=== PATIENT | female | born 1975 ===

== ENCOUNTER 2018-04-24 03:45 | Inpatient (IN) | payer OTHER ==
[2018-04-24] MEDS ORDERED: Sodium Chloride 0.9% 1,000 ML IV ONE (04:00)
[2018-04-24] MEDS ORDERED: Charcoal 50 gm/240 ml Susp PO STA (04:01)
--- NOTE | 2018-04-24 04:04 | C.PDOC ---
<Belkys Pitts - Last Filed: 04/24/18 04:03> <Brie Wood - Last Filed: 04/24/18 05:00> Time Seen by Provider: 04/24/18 03:48 Chief Complaint (Nursing): Psychiatric Evaluation Past Medical History Vital Signs: Last Vital Signs Temp 98.2 F 04/24/18 03:52 Pulse 101 H 04/24/18 03:52 Resp 22 04/24/18 03:52 BP 133/92 H 04/24/18 03:52 Pulse Ox 100 04/24/18 03:52 - Medical History PMH: Denies: Chronic Kidney Disease - Social History Hx Alcohol Use: Yes Hx Substance Use: No - Immunization History Hx Tetanus Toxoid Vaccination: No Hx Influenza Vaccination: No Hx Pneumococcal Vaccination: No <Belkys Pitts - Last Filed: 04/24/18 04:03> Vital Signs: Last Vital Signs Temp 98.2 F 04/24/18 03:52 Pulse 101 H 04/24/18 03:52 Resp 22 04/24/18 03:52 BP 133/92 H 04/24/18 03:52 Pulse Ox 100 04/24/18 04:04 <Brie Wood - Last Filed: 04/24/18 05:00> ED Course And Treatment ECG: Interpreted By Me, Viewed By Me ECG Rhythm: Sinus Rhythm (91), Nonspecific Changes O2 Sat by Pulse Oximetry: 100 Pulse Ox Interpretation: Normal <Belkys Pitts - Last Filed: 04/24/18 04:03> - Laboratory Results Result Diagrams: 04/24/18 04:13 04/24/18 04:13 <Brie Wood - Last Filed: 04/24/18 05:00> Medical Decision Making Medical Decision Makin discussed with Jaspreet at poison control. recommends labs, ivf, po charcoal, admission to follow coagulation/inr/pt/ptt. 0425 Dr Miller accepts patient to icu. Dr Davis notified of admission. <Brie Wood - Last Filed: 04/24/18 05:00> Disposition <Belkys Pitts - Last Filed: 04/24/18 04:03> Discussed With DrStephanie: Yeyo Davis Doctor Will See Patient In The: Hospital - Disposition Disposition Time: 04:56 <Brei Wood - Last Filed: 04/24/18 05:00> - Disposition Disposition: HOSPITALIZED Condition: SERIOUS Forms: [facility] (Azeri) - Clinical Impression Clinical Impression: Suicidal deliberate poisoning, Alcohol intoxication
[2018-04-24 04:16] LABS: BASO % 0.5 % (0.0-2.0); EOS # 0.1 K/uL (0.0-0.7); EOS % 1.6 % (0.0-4.0); HEMOGLOBIN 15.7 g/dL (11.0-16.0); LYMPH # 4.2 K/uL (1.0-4.3); MEAN CORPUSCULAR HEMOGLOBIN 33.2 pg (27.0-31.0); MEAN CORPUSCULAR HGB CONC 33.9 g/dL (33.0-37.0); MEAN PLATELET VOLUME 8.5 fL (7.2-11.7); MONO # 0.6 K/uL (0.0-0.8); MONO % 7.4 % (0.0-10.0); NEUT # 3.4 K/uL (1.8-7.0); NEUT % 40.5 % (50.0-75.0); NRBC % 0.1 % (0.0-2.0); RBC 4.72 Mil/uL (3.80-5.20); RED CELL DISTRIBUTION WIDTH 12.8 % (11.5-14.5); WHITE BLOOD COUNT 8.4 K/uL (4.8-10.8)
[2018-04-24 04:28] LABS: INR 0.9; PROTHROMBIN TIME 10.1 SECONDS (9.7-12.2)
[2018-04-24 04:31] LABS: ACETAMINOPHEN < 10.0 ug/mL (10.0-30.0); SALICYLATE < 1.0 mg/dL 1
[2018-04-24 04:33] LABS: ALB/GLOB RATIO 1.4 (1.0-2.1); ALBUMIN 4.4 g/dL (3.5-5.0); BLOOD UREA NITROGEN 11 mg/dL (7-17); CALCIUM 8.8 mg/dl (8.6-10.4); GFR NON-AFRICAN AMERICAN > 60
[2018-04-24 04:34] LABS: ALT/SGPT 40 U/L (9-52); AST/SGOT 44 U/L (14-36)
--- NOTE | 2018-04-24 04:58 | C.PDOC ---
History Of Present Illness 43 year old female is brought to the ED by brother for evaluation. Patient's brother states that patient went out drinking earlier tonight, returned home intoxicated and may have ingested pellets of rat poisoning. Her brother found h er unconscious on the floor, with an opened packet of rat poisoning. He noticed she had vomited and her vomitus contained pieces of the pellet. Patient may have been taking antibiotics for a urine infection. Additional information limited secondary to patient's clinical condition. Time Seen by Provider: 04/24/18 03:48 Chief Complaint (Nursing): Psychiatric Evaluation History Per: Family History/Exam Limitations: clinical condition Onset/Duration Of Symptoms: Unknown Current Symptoms Are (Timing): Still Present Suicide/Self Injury Attempted (Context): None Modifying Factor(s): Alcohol Additional History Per: Family Past Medical History Reviewed: Historical Data, Nursing Documentation, Vital Signs Vital Signs: Last Vital Signs Temp 98.2 F 04/24/18 03:52 Pulse 101 H 04/24/18 03:52 Resp 22 04/24/18 03:52 BP 133/92 H 04/24/18 03:52 Pulse Ox 100 04/24/18 04:04 - Medical History PMH: No Chronic Diseases Denies: Chronic Kidney Disease Surgical History: No Surg Hx Family History: States: Unknown Family Hx - Social History Hx Alcohol Use: Yes Hx Substance Use: No - Immunization History Hx Tetanus Toxoid Vaccination: No Hx Influenza Vaccination: No Hx Pneumococcal Vaccination: No Review Of Systems Review Of Systems: ROS cannot be obtained secondary to pt's inabilty to answer questions. Physical Exam - Physical Exam Appears: Non-toxic, Other (in acute distress ) Skin: Warm, Dry, Rash (to left side of mouth ) Head: Atraumatic, Normacephalic Eye(s): bilateral: Normal Inspection Oral Mucosa: Moist Neck: Supple Chest: Symmetrical, No Deformity, No Tenderness Cardiovascular: Rhythm Regular, No Murmur Respiratory: Normal Breath Sounds, No Rales, No Rhonchi, No Wheezing Gastrointestinal/Abdominal: Soft, No Tenderness, No Guarding, No Rebound Extremity: Normal ROM, Capillary Refill (less than 2 seconds ) Neurological/Psych: Other (arousable to touch and verbal stimuli ) ED Course And Treatment - Laboratory Results Result Diagrams: 04/24/18 04:13 04/24/18 04:13 Lab Results: PT 10.1 SECONDS (9.7-12.2) 04/24/18 04:16 INR 0.9 04/24/18 04:16 APTT 26 SECONDS (21-34) 04/24/18 04:16 Total Bilirubin 0.5 mg/dL (0.2-1.3) 04/24/18 04:13 AST 44 U/L (14-36) H 04/24/18 04:13 ALT 40 U/L (9-52) 04/24/18 04:13 Alkaline Phosphatase 61 U/L (38-126) 04/24/18 04:13 Total Protein 7.5 g/dL (6.3-8.3) 04/24/18 04:13 Albumin 4.4 g/dL (3.5-5.0) 04/24/18 04:13 Globulin 3.1 gm/dL (2.2-3.9) 04/24/18 04:13 Albumin/Globulin Ratio 1.4 (1.0-2.1) 04/24/18 04:13 O2 Sat by Pulse Oximetry: 100 (on RA) Pulse Ox Interpretation: Normal Critical Care Time - Critical Care Note Total Time (in mins): 30 Documented critical care: time excludes all time spent performing seperately billable procedures. Medical Decision Making Medical Decision Making: Progress: Case discussed with Poison Control hotline. Bloodwork, urinalysis, EKG ordered and reviewed. Activated Charcoal PO, Pepcid IVP, Protonix IVP, and IV Fluids given. Case discussed with Dr. Miller (Manufacturing Maintenance Technician stone driller helper), who evaluated the patient at bedside. Dr. Miller will downgrade the patient to Telemetry. Disposition - Disposition Disposition: HOSPITALIZED Disposition Time: 05:00 Condition: SERIOUS - Clinical Impression Clinical Impression: Suicidal deliberate poisoning, Alcohol intoxication - PA / SAFETY TECHNICIAN / Resident Statement MD/DO has reviewed & agrees with the documentation as recorded. - Scribe Statement The provider has reviewed the documentation as recorded by the Scribe (Alexandrea Beatty) All medical record entries made by the Scribe were at my direction and personally dictated by me. I have reviewed the chart and agree that the record accurately reflects my personal performance of the history, physical exam, medical decision making, and the department course for this patient. I have also personally directed, reviewed, and agree with the discharge instructions and disposition.
--- NOTE | 2018-04-24 05:42 | CP.CCUPN ---
CCU Subjective - Physician Review Subjective (Free Text): 04/24/18 05:32 Patient is [place]ian-speaking and the information obtained through bean snapper Patient was seen and examined in the emergency room, she is 43 years old female with no significant past medical history who was brought in for evaluation after she ingested 1 packet of rat poisoning. Apparently, Patient is having trouble with her boyfriend, Last night she went to work, but she did not work but rather she continued drinking which she does not usually do regularly, she felt that she rather than suffering, then she reach out to a packet of Rat poisoning and ingested the whole thing, afterward she was not feeling well, nauseous and threw up she called her mom who called the brother and report the patient to emergency room. In the emergency room the patient is alert awake oriented x3 her vital sign stable except for low-grade tachycardia heart rate of 110s and saturation was 100% on room air Physical exam and labs were unremarkable including the coagulation pProfil She received activated charcoal, and vomitied one more time in the ER. Critical Care Time Spent (in minutes): 45 CCU Objective - Vital Signs / Intake & Output Vital Signs (Last 4 hours): Vital Signs Temp Pulse Resp BP Pulse Ox 04/24/18 05:20 100 04/24/18 03:52 98.2 F 101 H 22 133/92 H 100 Intake and Output (Last 8hrs): Intake & Output 04/23/18 04/23/18 04/24/18 14:59 22:59 06:59 Weight 165 lb - Physical Exam Head: Positive for: Atraumatic, Normocephalic Pupils: Positive for: PERRL Extroacular Muscles: Positive for: EOMI Conjunctiva: Positive for: Normal. Negative for: Injected, Icteric Mouth: Positive for: Moist Mucous Membranes Neck: Positive for: Normal Range of Motion, Trachea Midline. Negative for: Meni ngeal Signs, MIDLINE TENDERNESS, Paraspinal Tenderness, JVD, Lymphadenopathy, Bruit, Other Respiratory/Chest: Positive for: Clear to Auscultation, Good Air Exchange. Negative for: Respiratory Distress, Accessory Muscle Use Cardiovascular: Positive for: Regular Rate and Rhythm, Normal S1, S2, Peripheal Pulses Present, Tachycardic. Negative for: Murmurs Abdomen: Positive for: Tenderness, Distention, Normal Bowel Sounds. Negative for: Rebound, Guarding Neurological: Positive for: GCS=15, CN II-XII Intact, Speech Normal Psychiatric: Positive for: Alert, Oriented x 3, Normal Insight, Normal Concentration - Patient Studies Lab Studies: Lab Studies 04/24/18 04/24/18 04/24/18 Range/Units 04:28 04:16 04:16 WBC (4.8-10.8) K/uL RBC (3.80-5.20) Mil/uL Hgb (11.0-16.0) g/dL Hct (34.0-47.0) % MCV (81.0-99.0) fL MCH (27.0-31.0) pg MCHC (33.0-37.0) g/dL RDW (11.5-14.5) % Plt Count (130-400) K/uL MPV (7.2-11.7) fL Neut % (Auto) (50.0-75.0) % Lymph % (Auto) (20.0-40.0) % Garfield % (Auto) (0.0-10.0) % Eos % (Auto) (0.0-4.0) % Baso % (Auto) (0.0-2.0) % Neut # (Auto) (1.8-7.0) K/uL Lymph # (Auto) (1.0-4.3) K/uL Garfield # (Auto) (0.0-0.8) K/uL Eos # (Auto) (0.0-0.7) K/uL Baso # (Auto) (0.0-0.2) K/uL PT 10.1 (9.7-12.2) SECONDS INR 0.9 APTT 26 (21-34) SECONDS Sodium (132-148) mmol/L Potassium (3.6-5.2) mmol/L Chloride (98-107) mmol/L Carbon Dioxide (22-30) mmol/L Anion Gap (10-20) BUN (7-17) mg/dL Creatinine (0.7-1.2) mg/dL Est GFR ( Amer) Est GFR (Non-Af Amer) POC Glucose (mg/dL) 96 (65-110) mg/dL Random Glucose (65-105) mg/dL Calcium (8.6-10.4) mg/dl Phosphorus (2.5-4.5) mg/dL Magnesium (1.6-2.3) mg/dL Total Bilirubin (0.2-1.3) mg/dL AST (14-36) U/L ALT (9-52) U/L Alkaline Phosphatase (38-126) U/L Total Protein (6.3-8.3) g/dL Albumin (3.5-5.0) g/dL Globulin (2.2-3.9) gm/dL Albumin/Globulin Ratio (1.0-2.1) Salicylates < 1.0 mg/dL 1 Acetaminophen < 10.0 L (10.0-30.0) ug/mL Alcohol, Quantitative (0-10) mg/dl 04/24/18 04/24/18 Range/Units 04:13 04:13 WBC 8.4 (4.8-10.8) K/uL RBC 4.72 (3.80-5.20) Mil/uL Hgb 15.7 (11.0-16.0) g/dL Hct 46.3 (34.0-47.0) % MCV 98.0 (81.0-99.0) fL MCH 33.2 H (27.0-31.0) pg MCHC 33.9 (33.0-37.0) g/dL RDW 12.8 (11.5-14.5) % Plt Count 228 (130-400) K/uL MPV 8.5 (7.2-11.7) fL Neut % (Auto) 40.5 L (50.0-75.0) % Lymph % (Auto) 50.0 H (20.0-40.0) % Garfield % (Auto) 7.4 (0.0-10.0) % Eos % (Auto) 1.6 (0.0-4.0) % Baso % (Auto) 0.5 (0.0-2.0) % Neut # (Auto) 3.4 (1.8-7.0) K/uL Lymph # (Auto) 4.2 (1.0-4.3) K/uL Garfield # (Auto) 0.6 (0.0-0.8) K/uL Eos # (Auto) 0.1 (0.0-0.7) K/uL Baso # (Auto) 0.0 (0.0-0.2) K/uL PT (9.7-12.2) SECONDS INR APTT (21-34) SECONDS Sodium 141 (132-148) mmol/L Potassium 4.4 (3.6-5.2) mmol/L Chloride 107 (98-107) mmol/L Carbon Dioxide 20 L (22-30) mmol/L Anion Gap 19 (10-20) BUN 11 (7-17) mg/dL Creatinine 0.6 L (0.7-1.2) mg/dL Est GFR ( Amer) > 60 Est GFR (Non-Af Amer) > 60 POC Glucose (mg/dL) (65-110) mg/dL Random Glucose 99 (65-105) mg/dL Calcium 8.8 (8.6-10.4) mg/dl Phosphorus 3.5 (2.5-4.5) mg/dL Magnesium 2.3 (1.6-2.3) mg/dL Total Bilirubin 0.5 (0.2-1.3) mg/dL AST 44 H (14-36) U/L ALT 40 (9-52) U/L Alkaline Phosphatase 61 (38-126) U/L Total Protein 7.5 (6.3-8.3) g/dL Albumin 4.4 (3.5-5.0) g/dL Globulin 3.1 (2.2-3.9) gm/dL Albumin/Globulin Ratio 1.4 (1.0-2.1) Salicylates mg/dL 1 Acetaminophen (10.0-30.0) ug/mL Alcohol, Quantitative 236 H (0-10) mg/dl Laboratory Results - last 24 hr 04/24/18 04/24/18 04/24/18 04:13 04:13 04:16 WBC 8.4 RBC 4.72 Hgb 15.7 Hct 46.3 MCV 98.0 MCH 33.2 H MCHC 33.9 RDW 12.8 Plt Count 228 MPV 8.5 Neut % (Auto) 40.5 L Lymph % (Auto) 50.0 H Garfield % (Auto) 7.4 Eos % (Auto) 1.6 Baso % (Auto) 0.5 Neut # (Auto) 3.4 Lymph # (Auto) 4.2 Garfield # (Auto) 0.6 Eos # (Auto) 0.1 Baso # (Auto) 0.0 PT INR APTT Sodium 141 Potassium 4.4 Chloride 107 Carbon Dioxide 20 L Anion Gap 19 BUN 11 Creatinine 0.6 L Est GFR ( Amer) > 60 Est GFR (Non-Af Amer) > 60 POC Glucose (mg/dL) Random Glucose 99 Calcium 8.8 Phosphorus 3.5 Magnesium 2.3 Total Bilirubin 0.5 AST 44 H ALT 40 Alkaline Phosphatase 61 Total Protein 7.5 Albumin 4.4 Globulin 3.1 Albumin/Globulin Ratio 1.4 Salicylates < 1.0 Acetaminophen < 10.0 L Alcohol, Quantitative 236 H 04/24/18 04/24/18 04:16 04:28 WBC RBC Hgb Hct MCV MCH MCHC RDW Plt Count MPV Neut % (Auto) Lymph % (Auto) Garfield % (Auto) Eos % (Auto) Baso % (Auto) Neut # (Auto) Lymph # (Auto) Garfield # (Auto) Eos # (Auto) Baso # (Auto) PT 10.1 INR 0.9 APTT 26 Sodium Potassium Chloride Carbon Dioxide Anion Gap BUN Creatinine Est GFR ( Amer) Est GFR (Non-Af Amer) POC Glucose (mg/dL) 96 Random Glucose Calcium Phosphorus Magnesium Total Bilirubin AST ALT Alkaline Phosphatase Total Protein Albumin Globulin Albumin/Globulin Ratio Salicylates Acetaminophen Alcohol, Quantitative EKG/Cardiology Studies: Cardiology / EKG Studies 04/24/18 04:01 ELECTROCARDIOGRAM Stat Comment: Mode Of Transportation: BED Reason For Exam: Detox/Psy Critical Care Progress Note - Extremities/Vascular Does the Patient have a Central Venous Catheter?: No Does the Patient need a Central Venous Catheter?: No Does the Patient have a Roblero Catheter?: No Does the Patient need a Roblero Catheter?: No Assessment/Plan - Assessment and Plan (Free Text) Plan: Patient is 43 years old female with no significant past medical history who is presenting to emergency room after ingestion of 1 pack of Rat poisoning at 2:30AM which is a strong vitamin K antagonist currently she is hemodynamically stable, does not have any complain and there is no symptoms or signs of any bleeding and her coagulation profile is negative, and we discussed with poison control Pt might be safely admitted to the telemetry, Please check urine toxicology screen, monitor Labs Maintain 1:1 constant observation, Psych consult If any condition or change please call the ICU
[2018-04-24 05:53] LABS: BARBITURATES, UR NEGATIVE (NEGATIVE); BENZODIAZEPINES, UR NEGATIVE (NEGATIVE); OPIATES, UR NEGATIVE (NEGATIVE); PHENCYCLIDINE, UR NEGATIVE (NEGATIVE)
--- NOTE | 2018-04-24 05:53 | CP.PCM.HP ---
<JanellHerrera - Last Filed: 04/24/18 05:28> History of Present Illness - History of Present Illness History of Present Illness: PGY-[address] History and [address] 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 Brother states that patient was out drinking earlier tonight, returned home where she ingested one full single packet of rat poison pellets. She proceeded to call her mother who lives in the [place]. Mother was concerned and called patient's brother, who awoke to find patient actively vomiting on the floor with the open packet of rat poison. Vomitus appeared to be non-bloody, non-bilious, containing pieces of the pellets. 2 episodes of vomiting in total witnessed. Brother states she has been having issues with her boyfriend for about a year now, has been known to "go out and drink on days she does not work". Patient states she drink 2 shots of Samir See, 1 [place] beer this evening, ingested the rat poison at 2:30 AM. She states she was fully aware of what she was doing and the severity of what she was doing. She endorses suicidal ideation, states "she wanted to rather than continue to suffer like this". She denies any past suicidal ideation/homicidal ideation or attempts to kill herself. When asked if she still wishes to harm herself or others, she states "I am calm now, I am calm" and that "the moment has passed, now I have to move on". Patient endorses nausea but no other acute somatic complaints. No fevers/chills, headaches, dizziness/lightheadedness, chest pain, palpitations, sob, cough, abdominal pain, diarrhea/constipation, hematemesis, hematochezia, melena. PMHx: denies PSHx: "tummy tuck" Allergies: NKDA Home Medications: None Family Hx: unknown Social Hx: social drinker as per patient, denies tobacco or illicit drug use PMD: none Present on Admission - Present on Admission Any Indicators Present on Admission: No Review of Systems - Review of Systems All systems: reviewed and no additional remarkable complaints except Review of Systems: as per HPI Past Patient History - Past Social History Smoking Status: Light Smoker < 10 Cigarettes Daily - CARDIAC Hx Cardiac Disorders: No - PULMONARY Hx Respiratory Disorders: No - NEUROLOGICAL Hx Neurological Disorder: No - HEENT Hx HEENT Problems: No - RENAL Hx Chronic Kidney Disease: No - ENDOCRINE/METABOLIC Hx Endocrine Disorders: No - HEMATOLOGICAL/ONCOLOGICAL Hx Blood Disorders: No - INTEGUMENTARY Hx Dermatological Problems: No - MUSCULOSKELETAL/RHEUMATOLOGICAL Hx Musculoskeletal Disorders: No - GASTROINTESTINAL Hx Gastrointestinal Disorders: No - GENITOURINARY/GYNECOLOGICAL Hx Genitourinary Disorders: Yes Other/Comment: recent UTI took meds as of 2 days ago - PSYCHIATRIC Hx Substance Use: No - SURGICAL HISTORY Hx Surgeries: Yes Other/Comment: tummy tuck as per pt - ANESTHESIA Hx Anesthesia: Yes Hx Anesthesia Reactions: No Meds Allergies/Adverse Reactions: Allergies Allergy/AdvReac Type Severity Reaction Status Date / Time No Known Allergies Allergy Verified 04/24/18 03:59 Physical Exam - Constitutional Appears: In Acute Distress, Agitated Additional comments: keeps eyes closed during PE, internally preoccupied, shaking her head side to side. - Head Exam Head Exam: ATRAUMATIC, NORMAL INSPECTION, NORMOCEPHALIC - Eye Exam Additional comments: keeps eyes closed during exam - ENT Exam ENT Exam: Mucous Membranes Dry, Normal Exam - Neck Exam Neck exam: Positive for: Full Rom, Normal Inspection. Negative for: Tenderness - Respiratory Exam Respiratory Exam: Clear to Auscultation Bilateral, NORMAL BREATHING PATTERN. absent: Accessory Muscle Use, Rales, Rhonchi, Wheezes, Respiratory Distress, Stridor - Cardiovascular Exam Cardiovascular Exam: Tachycardia, REGULAR RHYTHM, +S1, +S2 - GI/Abdominal Exam GI & Abdominal Exam: Distended, Normal Bowel Sounds, Soft. absent: Firm, Guarding, Rebound, Rigid, Tenderness Additional comments: surgical scar from abdominal surgery - Extremities Exam Extremities exam: Positive for: normal capillary refill, normal inspection, pedal pulses present. Negative for: calf tenderness, pedal edema - Back Exam Back exam: NORMAL INSPECTION. absent: CVA tenderness (L), CVA tenderness (R), rash noted - Neurological Exam Neurological exam: Alert, Oriented x3 - Psychiatric Exam Psychiatric exam: Suicidal Ideation - Skin Skin Exam: Dry, Intact, Normal Color, Rash (L sided perioral herpetic-like lesion ), Warm Results - Vital Signs Recent Vital Signs: Last Vital Signs Temp 98.2 F 04/24/18 03:52 Pulse 101 H 04/24/18 03:52 Resp 22 04/24/18 03:52 BP 133/92 H 04/24/18 03:52 Pulse Ox 100 04/24/18 05:20 - Labs Result Diagrams: 04/24/18 04:13 04/24/18 04:13 Labs: Laboratory Results - last 24 hr 04/24/18 04/24/18 04/24/18 04:13 04:13 04:16 WBC 8.4 RBC 4.72 Hgb 15.7 Hct 46.3 MCV 98.0 MCH 33.2 H MCHC 33.9 RDW 12.8 Plt Count 228 MPV 8.5 Neut % (Auto) 40.5 L Lymph % (Auto) 50.0 H [place] % (Auto) 7.4 Eos % (Auto) 1.6 Baso % (Auto) 0.5 Neut # (Auto) 3.4 Lymph # (Auto) 4.2 [place] # (Auto) 0.6 Eos # (Auto) 0.1 Baso # (Auto) 0.0 PT INR APTT Sodium 141 Potassium 4.4 Chloride 107 Carbon Dioxide 20 L Anion Gap 19 BUN 11 Creatinine 0.6 L Est GFR ( Amer) > 60 Est GFR (Non-Af Amer) > 60 POC Glucose (mg/dL) Random Glucose 99 Calcium 8.8 Phosphorus 3.5 Magnesium 2.3 Total Bilirubin 0.5 AST 44 H ALT 40 Alkaline Phosphatase 61 Total Protein 7.5 Albumin 4.4 Globulin 3.1 Albumin/Globulin Ratio 1.4 Salicylates < 1.0 Acetaminophen < 10.0 L Alcohol, Quantitative 236 H 04/24/18 04/24/18 04:16 04:28 WBC RBC Hgb Hct MCV MCH MCHC RDW Plt Count MPV Neut % (Auto) Lymph % (Auto) [place] % (Auto) Eos % (Auto) Baso % (Auto) Neut # (Auto) Lymph # (Auto) [place] # (Auto) Eos # (Auto) Baso # (Auto) PT 10.1 INR 0.9 APTT 26 Sodium Potassium Chloride Carbon Dioxide Anion Gap BUN Creatinine Est GFR ( Amer) Est GFR (Non-Af Amer) POC Glucose (mg/dL) 96 Random Glucose Calcium Phosphorus Magnesium Total Bilirubin AST ALT Alkaline Phosphatase Total Protein Albumin Globulin Albumin/Globulin Ratio Salicylates Acetaminophen Alcohol, Quantitative Assessment & Plan - Assessment and Plan (Free Text) Assessment: 43 year old F with no pmhx presenting to ED with suicidal ideation, attempt to kill herself after ingesting packet of rat poison. Found by brother at home actively vomiting. Plan: Substance Poisoning -patient/brother endorse full consumption of one packet of rat poison pellets (42g); packet with family in ED -Case discussed with Poison Control Hotline by ED -s/p activated charcoal 50 gm PO x1, protonix 40 mg IVP x1, pepcid 20 mg IVP x1, NS bolus -vs wnl -H/H wnl, hemodynamically stable -coags negative -electrolyte wnl -liver panel wnl -acetaminophen, salicylate serum level negative -alcohol 236 -Critical care (Dr. Miller) consulted -patient hemodynamically stable at this time -tele monitoring -UDS -repeat labs -type and screen -serum osmol -UA -EKG -NS -zofran prn for nausea -clear liquid diet, advance as tolerated Alcohol Intoxication, unknown hx abuse -alcohol 236 -[facility] protocol -thiamine/folic acid/MV Suicidal ideation/attempt -Psych consult stat -1:1 monitor Perioral Herpetic-Like lesion -HSV 1/2 -GC/chlamydia -HIV PPx, Diet, Disposition -DVT ppx: scd -Diet: clear liquid, advance as tolerated Case discussed with Dr. Susan Maciel DO, PGY-1 <Yeyo Davis - Last Filed: 04/24/18 06:44> Results - Vital Signs Recent Vital Signs: Last Vital Signs Temp 98 F 04/24/18 06:39 Pulse 98 H 04/24/18 06:39 Resp 20 04/24/18 06:39 BP 116/73 04/24/18 06:39 Pulse Ox 98 04/24/18 06:39 - Labs Result Diagrams: 04/24/18 04:13 04/24/18 04:13 Labs: Laboratory Results - last 24 hr 04/24/18 04/24/18 04/24/18 04:13 04:13 04:16 WBC 8.4 RBC 4.72 Hgb 15.7 Hct 46.3 MCV 98.0 MCH 33.2 H MCHC 33.9 RDW 12.8 Plt Count 228 MPV 8.5 Neut % (Auto) 40.5 L Lymph % (Auto) 50.0 H [place] % (Auto) 7.4 Eos % (Auto) 1.6 Baso % (Auto) 0.5 Neut # (Auto) 3.4 Lymph # (Auto) 4.2 [place] # (Auto) 0.6 Eos # (Auto) 0.1 Baso # (Auto) 0.0 PT INR APTT Puncture Site pCO2 pO2 HCO3 ABG pH ABG Total CO2 ABG O2 Saturation ABG Base Excess Last Test ABG Potassium A-a O2 Difference Respiratory Index Glucose Lactate FiO2 Sodium 141 Potassium 4.4 Chloride 107 Carbon Dioxide 20 L Anion Gap 19 BUN 11 Creatinine 0.6 L Est GFR ( Amer) > 60 Est GFR (Non-Af Amer) > 60 POC Glucose (mg/dL) Random Glucose 99 Calcium 8.8 Phosphorus 3.5 Magnesium 2.3 Total Bilirubin 0.5 AST 44 H ALT 40 Alkaline Phosphatase 61 Total Protein 7.5 Albumin 4.4 Globulin 3.1 Albumin/Globulin Ratio 1.4 Arterial Blood Potassium Urine HCG, Qual Salicylates < 1.0 Urine Opiates Screen Urine Methadone Screen Acetaminophen < 10.0 L Ur Barbiturates Screen Ur Phencyclidine Scrn Ur Amphetamines Screen U Benzodiazepines Scrn U Oth Cocaine Metabols U Cannabinoids Screen Alcohol, Quantitative 236 H 04/24/18 04/24/18 04/24/18 04:16 04:28 05:15 WBC RBC Hgb Hct MCV MCH MCHC RDW Plt Count MPV Neut % (Auto) Lymph % (Auto) [place] % (Auto) Eos % (Auto) Baso % (Auto) Neut # (Auto) Lymph # (Auto) [place] # (Auto) Eos # (Auto) Baso # (Auto) PT 10.1 INR 0.9 APTT 26 Puncture Site pCO2 pO2 HCO3 ABG pH ABG Total CO2 ABG O2 Saturation ABG Base Excess Last Test ABG Potassium A-a O2 Difference Respiratory Index Glucose Lactate FiO2 Sodium Potassium Chloride Carbon Dioxide Anion Gap BUN Creatinine Est GFR ( Amer) Est GFR (Non-Af Amer) POC Glucose (mg/dL) 96 Random Glucose Calcium Phosphorus Magnesium Total Bilirubin AST ALT Alkaline Phosphatase Total Protein Albumin Globulin Albumin/Globulin Ratio Arterial Blood Potassium Urine HCG, Qual Salicylates Urine Opiates Screen Negative Urine Methadone Screen Negative Acetaminophen Ur Barbiturates Screen Negative Ur Phencyclidine Scrn Negative Ur Amphetamines Screen Negative U Benzodiazepines Scrn Negative U Oth Cocaine Metabols Negative U Cannabinoids Screen Negative Alcohol, Quantitative 04/24/18 04/24/18 05:15 06:00 WBC RBC Hgb Hct MCV MCH MCHC RDW Plt Count MPV Neut % (Auto) Lymph % (Auto) [place] % (Auto) Eos % (Auto) Baso % (Auto) Neut # (Auto) Lymph # (Auto) [place] # (Auto) Eos # (Auto) Baso # (Auto) PT INR APTT Puncture Site Rra pCO2 37 pO2 81 HCO3 21.8 ABG pH 7.36 ABG Total CO2 22.0 ABG O2 Saturation 96.7 ABG Base Excess -4.0 L Last Test Yes ABG Potassium 3.2 L A-a O2 Difference 22.0 Respiratory Index 0.3 Glucose 106 H Lactate 2.3 H FiO2 21.0 Sodium 141.0 Potassium Chloride 112.0 H Carbon Dioxide Anion Gap BUN Creatinine Est GFR ( Amer) Est GFR (Non-Af Amer) POC Glucose (mg/dL) Random Glucose Calcium Phosphorus Magnesium Total Bilirubin AST ALT Alkaline Phosphatase Total Protein Albumin Globulin Albumin/Globulin Ratio Arterial Blood Potassium 3.2 L Urine HCG, Qual Negative Salicylates Urine Opiates Screen Urine Methadone Screen Acetaminophen Ur Barbiturates Screen Ur Phencyclidine Scrn Ur Amphetamines Screen U Benzodiazepines Scrn U Oth Cocaine Metabols U Cannabinoids Screen Alcohol, Quantitative Assessment & Plan - Date & Time Date: 04/24/18 (I have seen and examined the patient. I agree with the findings and plan of care as documented by Dr. Maciel. Patient with suicide attempt by ingesting rat poison. Poison control contacted. ICU consult appreciated. Stable enough to be observed outside of ICU. Consult to psych. 1:1 monitoring. Currently denies suicidal ideation. [facility] protocol for alcohol abuse. Monitor for acute changes.) Time: 06:42 Attending/Attestation - Attestation I have personally seen and examined this patient.: Yes I have fully participated in the care of the patient.: Yes I have reviewed all pertinent clinical information: Yes
[2018-04-24 06:05] LABS: ABG ALLEN TEST YES; ARTERIAL BLOOD GAS HCO3 21.8 mmol/L (21-28); ARTERIAL BLOOD GAS O2 SAT 96.7 % (95-98); ARTERIAL BLOOD GAS PCO2 37 mm/Hg (35-45); ARTERIAL BLOOD GAS PH 7.36 (7.35-7.45); ARTERIAL BLOOD GAS PO2 81 mm/Hg (80-100)
--- NOTE | 2018-04-24 07:27 | CP.PCM.PN ---
<Nathaly Solorio - Last Filed: 04/24/18 17:41> Subjective - Date & Time of Evaluation Date of Evaluation: 04/24/18 Time of Evaluation: 07:27 - Subjective Subjective: PGY-1 Nathaly Solorio D.O. Medicine progress note for Dr. Chamorro's service: anesthesiologist/physician: [id number] Patient was seen and examined this morning. 1:1 sitter at bedside. She was alert and oriented. She complained of a headache and fatigue. She stated that she does not have an appetite. She denies nausea and vomiting. She denies diarrhea or constipation. Patient denies intent to harm herself or kill herself right now. Objective - Vital Signs/Intake and Output Vital Signs (last 24 hours): Temp Pulse Resp BP Pulse Ox 98 F 98 H 20 116/73 100 04/24/18 06:39 04/24/18 06:39 04/24/18 06:39 04/24/18 06:39 04/24/18 07:26 - Medications Medications: Current Medications Folic Acid (Folic Acid) 1 mg PO DAILY [facility] Multivitamins (Hexavitamin) 1 tab PO DAILY [facility] Ondansetron HCl (Zofran Inj) 4 mg IVP ONCE ONE Stop: 04/24/18 07:31 Thiamine HCl (Vitamin B1 Tab) 100 mg PO DAILY [facility] - Labs Labs: 04/24/18 04:13 04/24/18 04:13 PT 10.1 SECONDS (9.7-12.2) 04/24/18 04:16 INR 0.9 04/24/18 04:16 APTT 26 SECONDS (21-34) 04/24/18 04:16 - Constitutional Appears: Non-toxic, No Acute Distress - Head Exam Head Exam: ATRAUMATIC, NORMAL INSPECTION - Eye Exam Eye Exam: EOMI, Normal appearance, PERRL - ENT Exam ENT Exam: Mucous Membranes Dry Additional comments: dry crusting lesions around lips and chin - Neck Exam Neck Exam: Normal Inspection - Respiratory Exam Respiratory Exam: Clear to Ausculation Bilateral, NORMAL BREATHING PATTERN. absent: Respiratory Distress - Cardiovascular Exam Cardiovascular Exam: REGULAR RHYTHM, +S1, +S2 - GI/Abdominal Exam GI & Abdominal Exam: Soft. absent: Distended, Tenderness - Extremities Exam Extremities Exam: Normal Inspection. absent: Pedal Edema - Neurological Exam Neurological Exam: Alert, Awake, CN II-XII Intact, Oriented x3 - Psychiatric Exam Psychiatric exam: Depressed, Flat Affect - Skin Skin Exam: Dry, Intact, Normal Color, Warm Assessment and Plan - Assessment and Plan (Free Text) Assessment: Patient is a 43 yo female who presented after a suicide attempt after drinking alcohol and ingesting rat poisoning. She was brought in by her brother who notes that patient has been having difficulties with her boyfriend for the past year. Patient was given charcoal. Poison control contacted. Psychiatry consulted- awaiting recs. Plan: Suicide attempt via alcohol and rat poison ingestion - Charcoal in ED - Poison control contacted - 1:1 observation - Monitor on telemetry - EKG: NSR - BAL 236 - UDS, acetaminophen, salicylates negative - Initial CBC, coags, CMP wnl- continue to monitor - NS @ 100 mL/hr - Clear liquids - Zofran 4 mg IV Q4H PRN - Critical care consulted- no need for ICU at this time - Psychiatry consult ([place]) Alcohol use disorder - BAL 236 - CIWA - MV daily - Thiamine 100 mg PO daily - Folate 1 mg PO daily Perioral lesions - HIV negative - f/u HSV - f/u chlamydia, gonorrhea Ppx: VTE: SCDs GI: not indicated Code status: full code Case was discussed with attending, Dr. Chamorro. <Rickie Chamorro - Last Filed: 04/27/18 20:03> Objective - Vital Signs/Intake and Output Vital Signs (last 24 hours): Temp Pulse Resp BP Pulse Ox 98.5 F 80 20 118/75 98 04/27/18 06:27 04/27/18 15:27 04/27/18 06:27 04/27/18 15:27 04/26/18 07:00 - Medications Medications: Current Medications Bupropion HCl (Wellbutrin) 150 mg PO DAILY [facility] Last Admin: 04/27/18 10:08 Dose: 150 mg Folic Acid (Folic Acid) 1 mg PO DAILY [facility] Last Admin: 04/27/18 09:47 Dose: 1 mg Gabapentin (Neurontin) 100 mg PO TID [facility] Last Admin: 04/27/18 17:22 Dose: 100 mg Hydroxyzine HCl (Atarax) 25 mg PO Q6 PRN PRN Reason: Agitation Influenza Virus Vaccine (Flucelvax Quad [id number] Syr) 60 mcg IM .ONCE ONE Stop: 04/29/18 10:01 Mirtazapine (Remeron) 15 mg PO HS [facility] Multivitamins (Hexavitamin) 1 tab PO DAILY [facility] Last Admin: 04/27/18 09:47 Dose: 1 tab Ondansetron HCl (Zofran Inj) 4 mg IVP Q4H PRN PRN Reason: Nausea/Vomiting Last Admin: 04/24/18 13:50 Dose: 4 mg Pneumococcal Polyvalent Vaccine (Pneumovax 23 Vaccine) 0.5 ml IM .ONCE ONE Stop: 04/29/18 10:01 Thiamine HCl (Vitamin B1 Tab) 100 mg PO DAILY [facility] Last Admin: 04/27/18 09:47 Dose: 100 mg Trazodone HCl (Desyrel) 50 mg PO HS PRN PRN Reason: Insomnia - Labs Labs: 04/26/18 06:30 04/26/18 06:30 PT 12.6 SECONDS (9.7-12.2) H 04/26/18 06:30 INR 1.2 04/26/18 06:30 APTT 25 SECONDS (21-34) 04/26/18 06:30 Attending/Attestation - Attestation I have personally seen and examined this patient.: Yes I have fully participated in the care of the patient.: Yes I have reviewed all pertinent clinical information, including history, physical exam and plan: Yes Notes (Text): SEEN AND EXAMINED BY ME FOLLOW POISON CONTROL RECOMMENDATION,MONITOR INR,WATCH FOR BLEEDING,CONTINUE 1;1 ,FOLLOW PSYCHIATRIST DENIES ANY BLEEDING,NO COMPLAIN EXAMINATION NORMAL I AGREE WITH THE RESIDENT'S DOCUMENTATION
[2018-04-24 08:30] LABS: SQUAMOUS EPITHIAL 2 /hpf (0-5); URINE BILIRUBIN NEGATIVE (NEGATIVE); URINE BLOOD 3+ (NEGATIVE); URINE CLARITY Clear (Clear); URINE COLOR Straw (YELLOW); URINE GLUCOSE (UA) NORMAL (Normal); URINE LEUKOCYTE ESTERASE NEG Leu/uL (Negative); URINE PROTEIN NEGATIVE (NEGATIVE); URINE UROBILINOGEN NORMAL mg/dL (0.2-1.0)
--- NOTE | 2018-04-24 09:31 | PCM.PSYCH ---
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 Pt's brother states that the pt was out drinking earlier last night, returned home where she ingested one full single packet of rat poison pellets. Pt was consulted by psych today. Pt was examined at bedside. Pt is in no acute distress, but appears lethargic and tired. When asked about why she ingested the rat poison, pt states "I wasn't feeling good". Pt states she has had a history of depression with suicidal ideations. Pt reports a previous history of inpatient psychiatric hospitalization 3 years ago for depression. Pt 's last time seeing a psy chiatrist was over a year ago but does not remember who it was. Pt states she drinks alcohol, about 2 shots and 1, 12oz beer a day. Pt reports hearing multiple female voices calling out her name, but denies that the voices are telling her to hurt herself or others. Pt reports depressed mood, headache, nausea, and auditory hallucination. Pt denies visual hallucinations, suicidal or homicidal ideations, and paranoia. Past Psych Hx: Depression PMH: denies Meds: denies Allergies: denies Current Medications: Active Medications Generic Name Dose Route Start Last Admin Trade Name Jackie PRN Reason Stop Dose Admin Folic Acid 1 mg 04/24/18 10:00 Folic Acid PO DAILY [facility] Multivitamins 1 tab 04/24/18 10:00 Hexavitamin PO DAILY [facility] Thiamine HCl 100 mg 04/24/18 10:00 Vitamin B1 Tab PO DAILY [facility] Past Psychiatric History - Past Psychiatric History Previous Treatment History: Inpatient Pertinent Medical Hx (Current Medical&Sleep Prob, Allergies): Allergies Allergy/AdvReac Type Severity Reaction Status Date / Time No Known Allergies Allergy Verified 04/24/18 03:59 Review of Systems - Review of Systems All systems: reviewed and no additional remarkable complaints except - Psychiatric Psychiatric: Anxiety, Irritability, Suicidal Ideation Mental Status Examination - Personal Presentation Personal Presentation: Looks stated age - Affect Affect: Constricted, Depressed - Reliability in Providing Information Reliability in Providing Information: Poor, due to alteration in thoughts - Speech Speech: Disorganized - Mood Mood: Depressed, Anxious - Formal Thought Process Formal Thought Process: No Impairment - Hallucinations/Delusions Delusions: Persecution - Obsessions/Compulsions Obsessions: No Compulsions: No - Cognitive Functions Orientation: Person, Place, Situation, Time Sensorium: Alert Attention/Concentration: Attentive Abstract Thinking: [place] Estimate of Intelligence: Below average Judgement: Imparied, as evidence by: Poor judgement, Imparied, as evidence by: Lack of insight into illness - Risk Risk: Suicidal, Self-mutilation - Strength & Assets Inventory Strength & Assets Inventory: Family support DSM 5 DX - DSM 5 DSM 5 Diagnosis: Major depressive disorder recurrent severe without psychotic features - Recommended/Plan of Treatment Treatment Recommendations and Plan of Treatment: Major depressive disorder recurrent severe without psychotic features CBT Psychoeducation Supportive therapy and group therapy Zoloft 50 mg p.o. daily Hydroxyzine 25 mg p.o. every 6 hours as needed Patient to be transferred to psych, after medical clearance. - Smoking Cessation Smoking Cessation Initiated: No
[2018-04-24] MEDS: Multiple Vitamins Tab PO SCH (09:58)
[2018-04-24] MEDS: Sodium Chloride 0.9% 1,000 ML IV SCH (14:44)
[2018-04-25] MEDS: Sodium Chloride 0.9% 1,000 ML IV SCH ×3 (00:51→20:44)
--- NOTE | 2018-04-25 07:12 | CP.PCM.PN ---
<Nathaly Solorio - Last Filed: 04/25/18 14:22> Subjective - Date & Time of Evaluation Date of Evaluation: 04/25/18 Time of Evaluation: 07:10 - Subjective Subjective: PGY-1 Nathaly Solorio D.O. Medicine progress note for Dr. Chamorro's service: faro dealer: [id number] Patient was seen and examined this morning. 1:1 sitter at bedside. Patient says that her headache has resolved. She still does not have an appetite, but she has tolerated water. She denies nausea, vomiting, and abdominal pain. Discussed her seeing psychiatrist and patient is resistant to going to inpatient psych unit. She has had inpatient psych treatment before, and she explains she does not like it because she is locked in and cannot have her phone to talk to her 10 yo son. Explained to patient the severity of a suicide attempt and that it is important for her to get treatment for both her mind and body. She understands and agrees that she is depressed, yet denies suicidal ideation or intent to harm herself at this time. She says she will think more today about psychiatric treatment. Objective - Vital Signs/Intake and Output Vital Signs (last 24 hours): Temp Pulse Resp BP Pulse Ox 98.4 F 71 20 121/76 97 04/24/18 23:15 04/25/18 01:30 04/24/18 23:15 04/24/18 23:15 04/24/18 23:15 - Medications Medications: Current Medications Folic Acid (Folic Acid) 1 mg PO DAILY [facility] Last Admin: 04/24/18 09:57 Dose: 1 mg Hydroxyzine HCl (Atarax) 25 mg PO Q6 PRN PRN Reason: Agitation Sodium Chloride (Sodium Chloride 0.9%) 1,000 mls @ 100 mls/hr IV .Q10H [facility] Last Admin: 04/25/18 00:51 Dose: 100 mls/hr Multivitamins (Hexavitamin) 1 tab PO DAILY [facility] Last Admin: 04/24/18 09:58 Dose: 1 tab Ondansetron HCl (Zofran Inj) 4 mg IVP Q4H PRN PRN Reason: Nausea/Vomiting Last Admin: 04/24/18 13:50 Dose: 4 mg Sertraline HCl (Zoloft) 50 mg PO DAILY [facility] Thiamine HCl (Vitamin B1 Tab) 100 mg PO DAILY [facility] Last Admin: 04/24/18 09:57 Dose: 100 mg Trazodone HCl (Desyrel) 50 mg PO HS [facility] - Labs Labs: 04/24/18 04:13 04/24/18 04:13 PT 10.1 SECONDS (9.7-12.2) 04/24/18 04:16 INR 0.9 04/24/18 04:16 APTT 26 SECONDS (21-34) 04/24/18 04:16 - Additional Findings Additional findings: - Constitutional Appears: Non-toxic, No Acute Distress - Head Exam Head Exam: ATRAUMATIC, NORMAL INSPECTION - Eye Exam Eye Exam: EOMI, Normal appearance, PERRL - ENT Exam ENT Exam: Mucous Membranes Dry Additional comments: dry crusting lesions around lips and chin- improving - Neck Exam Neck Exam: Normal Inspection - Respiratory Exam Respiratory Exam: Clear to Ausculation Bilateral, NORMAL BREATHING PATTERN. absent: Respiratory Distress - Cardiovascular Exam Cardiovascular Exam: REGULAR RHYTHM, +S1, +S2 - GI/Abdominal Exam GI & Abdominal Exam: Soft. absent: Distended, Tenderness - Extremities Exam Extremities Exam: Normal Inspection. absent: Pedal Edema - Neurological Exam Neurological Exam: Alert, Awake, CN II-XII Intact, Oriented x3 - Psychiatric Exam Psychiatric exam: Depressed, Flat Affect - Skin Skin Exam: Dry, Intact, Normal Color, Warm Assessment and Plan - Assessment and Plan (Free Text) Assessment: Patient is a 43 yo female who presented after a suicide attempt after drinking alcohol and ingesting rat poisoning. She was brought in by her brother who notes that patient has been having difficulties with her boyfriend for the past year. Patient was given charcoal. Poison control contacted. Psychiatry consulted- recommends patient go to inpatient psych unit once medically cleared. Plan: Suicide attempt via alcohol and rat poison ingestion - Previous psych admission for depression. Pt not currently seeing psychiatrist or taking meds. - Charcoal in ED - Poison control contacted - 1:1 observation - Monitor on telemetry - EKG: NSR - BAL 236 on admission - UDS, acetaminophen, salicylates negative - CBC, coags, electrolytes remain wnl- continue to monitor - Lactate 2.3 on admission, resolved (1) - NS @ 100 mL/hr - Clear liquids- ADAT - Zofran 4 mg IV Q4H PRN - Atarax 35 mg PO Q6H PRN - Zoloft 50 mg PO daily - Trazodone 50 mg PO QHS - Critical care consulted- no need for ICU at this time - Psychiatry consult (Ok)- started meds, rec inpatient psych Alcohol use disorder - BAL 236 on admission - CIWA- 0, 3, 0 - MV daily - Thiamine 100 mg PO daily - Folate 1 mg PO daily Perioral lesions - HIV negative - f/u HSV - f/u chlamydia, gonorrhea Ppx: VTE: SCDs, chemical anticoag contraindicated in setting of ingestion GI: not indicated Code status: full code Case was discussed with attending, Dr. Chamorro. <Rickie Chamorro - Last Filed: 04/27/18 20:01> Objective - Vital Signs/Intake and Output Vital Signs (last 24 hours): Temp Pulse Resp BP Pulse Ox 98.5 F 80 20 118/75 98 04/27/18 06:27 04/27/18 15:27 04/27/18 06:27 04/27/18 15:27 04/26/18 07:00 - Medications Medications: Current Medications Bupropion HCl (Wellbutrin) 150 mg PO DAILY [facility] Last Admin: 04/27/18 10:08 Dose: 150 mg Folic Acid (Folic Acid) 1 mg PO DAILY [facility] Last Admin: 04/27/18 09:47 Dose: 1 mg Gabapentin (Neurontin) 100 mg PO TID [facility] Last Admin: 04/27/18 17:22 Dose: 100 mg Hydroxyzine HCl (Atarax) 25 mg PO Q6 PRN PRN Reason: Agitation Influenza Virus Vaccine (Flucelvax Quad [id number] Syr) 60 mcg IM .ONCE ONE Stop: 04/29/18 10:01 Mirtazapine (Remeron) 15 mg PO HS [facility] Multivitamins (Hexavitamin) 1 tab PO DAILY [facility] Last Admin: 04/27/18 09:47 Dose: 1 tab Ondansetron HCl (Zofran Inj) 4 mg IVP Q4H PRN PRN Reason: Nausea/Vomiting Last Admin: 04/24/18 13:50 Dose: 4 mg Pneumococcal Polyvalent Vaccine (Pneumovax 23 Vaccine) 0.5 ml IM .ONCE ONE Stop: 04/29/18 10:01 Thiamine HCl (Vitamin B1 Tab) 100 mg PO DAILY [facility] Last Admin: 04/27/18 09:47 Dose: 100 mg Trazodone HCl (Desyrel) 50 mg PO HS PRN PRN Reason: Insomnia - Labs Labs: 04/26/18 06:30 04/26/18 06:30 PT 12.6 SECONDS (9.7-12.2) H 04/26/18 06:30 INR 1.2 04/26/18 06:30 APTT 25 SECONDS (21-34) 04/26/18 06:30 Attending/Attestation - Attestation I have personally seen and examined this patient.: Yes I have fully participated in the care of the patient.: Yes I have reviewed all pertinent clinical information, including history, physical exam and plan: Yes Notes (Text): SEEN AND EXAMINED,NO COMPLAIN,SEEN BY PSYCHIATRIST WE WILL MONITOR INR RECOMMENDED BY POISON CONTROL I AGREE WITH THE RESIDENT'S DOCUMENTATION NO SIGNS OF BLEEDING,TOLERATING DIET,ON
[2018-04-25 07:49] LABS: BASO % 0.6 % (0.0-2.0); EOS # 0.1 K/uL (0.0-0.7); EOS % 2.2 % (0.0-4.0); HEMOGLOBIN 14.1 g/dL (11.0-16.0); LYMPH # 2.2 K/uL (1.0-4.3); LYMPH % 34.6 % (20.0-40.0); MEAN CELL VOLUME 97.9 fL (81.0-99.0); MEAN CORPUSCULAR HEMOGLOBIN 33.9 pg (27.0-31.0); MEAN CORPUSCULAR HGB CONC 34.7 g/dL (33.0-37.0); MEAN PLATELET VOLUME 8.4 fL (7.2-11.7); MONO # 0.5 K/uL (0.0-0.8); MONO % 8.2 % (0.0-10.0); NEUT # 3.4 K/uL (1.8-7.0); NEUT % 54.4 % (50.0-75.0); NRBC % 0.2 % (0.0-2.0); RBC 4.15 Mil/uL (3.80-5.20); RED CELL DISTRIBUTION WIDTH 12.8 % (11.5-14.5); WHITE BLOOD COUNT 6.3 K/uL (4.8-10.8)
[2018-04-25 07:50] LABS: ALB/GLOB RATIO 1.3 (1.0-2.1); ALBUMIN 3.4 g/dL (3.5-5.0); ALT/SGPT 33 U/L (9-52); AST/SGOT 35 U/L (14-36); BLOOD UREA NITROGEN 7 mg/dL (7-17); CALCIUM 7.9 mg/dl (8.6-10.4); GFR NON-AFRICAN AMERICAN > 60
[2018-04-25 08:30] LABS: INR 1.1; PROTHROMBIN TIME 11.5 SECONDS (9.7-12.2)
[2018-04-25] MEDS: Multiple Vitamins Tab PO SCH (10:31)
[2018-04-26] MEDS: Sodium Chloride 0.9% 1,000 ML IV SCH ×2 (05:08→16:32)
[2018-04-26 06:39] LABS: BASO # 0.1 K/uL (0.0-0.2); BASO % 0.8 % (0.0-2.0); EOS # 0.1 K/uL (0.0-0.7); EOS % 1.6 % (0.0-4.0); HEMOGLOBIN 14.3 g/dL (11.0-16.0); LYMPH # 1.9 K/uL (1.0-4.3); LYMPH % 28.1 % (20.0-40.0); MEAN CELL VOLUME 96.4 fL (81.0-99.0); MEAN CORPUSCULAR HEMOGLOBIN 34.3 pg (27.0-31.0); MEAN CORPUSCULAR HGB CONC 35.5 g/dL (33.0-37.0); MEAN PLATELET VOLUME 8.4 fL (7.2-11.7); MONO # 0.5 K/uL (0.0-0.8); MONO % 8.2 % (0.0-10.0); NEUT % 61.3 % (50.0-75.0); RBC 4.19 Mil/uL (3.80-5.20); RED CELL DISTRIBUTION WIDTH 12.4 % (11.5-14.5); WHITE BLOOD COUNT 6.6 K/uL (4.8-10.8)
[2018-04-26 06:58] LABS: INR 1.2; PROTHROMBIN TIME 12.6 SECONDS (9.7-12.2)
[2018-04-26 07:08] LABS: ALB/GLOB RATIO 1.3 (1.0-2.1); ALBUMIN 3.4 g/dL (3.5-5.0); ALT/SGPT 46 U/L (9-52); AST/SGOT 35 U/L (14-36); BLOOD UREA NITROGEN 6 mg/dL (7-17); CALCIUM 8.2 mg/dl (8.6-10.4); GFR NON-AFRICAN AMERICAN > 60
[2018-04-26] MEDS: Multiple Vitamins Tab PO SCH (09:18)
--- NOTE | 2018-04-26 09:50 | CP.PCM.PCO ---
Physician Communication Note - Physician Communication Note Physician Communication Note: Pt medically cleared to go to psych unit
--- NOTE | 2018-04-26 10:05 | CP.PCM.DIS ---
<Nathaly Solorio - Last Filed: 04/26/18 10:33> Provider - Provider Date of Admission: 04/24/18 04:44 Attending physician: Rickie Chamorro MD Primary care physician: none Consults: 04/24/18 04:23 Critical Care Consult Stat Comment: Consulting Provider: Solis Miller Consulting Physician: Solis Miller Reason for Consult: rat poison ingestion 04/24/18 04:55 Psychiatry Consult Stat Comment: Consulting Provider: Luisa Euceda Consulting Physician: Luisa Euceda Reason for Consult: suicide attempt, rat poison ingestion 04/24/18 06:48 Director Of Pupil Personnel Program [Case Management Referral] Routine Comment: Physician Instructions: Reason For Exam: Reason for Referral: Director Of Pupil Personnel Program [place] 04/25/18 09:53 Pastoral Care Referral Routine Comment: Physician Instructions: Reason For Exam: depression, s/p suicide attempt Time Spent in preparation of Discharge (in minutes): 45 Diagnosis - Discharge Diagnosis (1) Suicidal deliberate poisoning Status: Acute Priority: High (2) Alcohol intoxication Status: Resolved Priority: High (3) Depression Status: Chronic Priority: High Hospital Course - Lab Results Lab Results: Most Recent Lab Values WBC 6.6 K/uL (4.8-10.8) 04/26/18 06:30 RBC 4.19 Mil/uL (3.80-5.20) 04/26/18 06:30 Hgb 14.3 g/dL (11.0-16.0) 04/26/18 06:30 Hct 40.4 % (34.0-47.0) 04/26/18 06:30 MCV 96.4 fL (81.0-99.0) 04/26/18 06:30 MCH 34.3 pg (27.0-31.0) H 04/26/18 06:30 MCHC 35.5 g/dL (33.0-37.0) 04/26/18 06:30 RDW 12.4 % (11.5-14.5) 04/26/18 06:30 Plt Count 211 K/uL (130-400) 04/26/18 06:30 MPV 8.4 fL (7.2-11.7) 04/26/18 06:30 Neut % (Auto) 61.3 % (50.0-75.0) 04/26/18 06:30 Lymph % (Auto) 28.1 % (20.0-40.0) 04/26/18 06:30 [place] % (Auto) 8.2 % (0.0-10.0) 04/26/18 06:30 Eos % (Auto) 1.6 % (0.0-4.0) 04/26/18 06:30 Baso % (Auto) 0.8 % (0.0-2.0) 04/26/18 06:30 Neut # (Auto) 4.0 K/uL (1.8-7.0) 04/26/18 06:30 Lymph # (Auto) 1.9 K/uL (1.0-4.3) 04/26/18 06:30 [place] # (Auto) 0.5 K/uL (0.0-0.8) 04/26/18 06:30 Eos # (Auto) 0.1 K/uL (0.0-0.7) 04/26/18 06:30 Baso # (Auto) 0.1 K/uL (0.0-0.2) 04/26/18 06:30 PT 12.6 SECONDS (9.7-12.2) H 04/26/18 06:30 INR 1.2 04/26/18 06:30 APTT 25 SECONDS (21-34) 04/26/18 06:30 Puncture Site Rra 04/24/18 06:00 pCO2 37 mm/Hg (35-45) 04/24/18 06:00 pO2 81 mm/Hg (80-100) 04/24/18 06:00 HCO3 21.8 mmol/L (21-28) 04/24/18 06:00 ABG pH 7.36 (7.35-7.45) 04/24/18 06:00 ABG Total CO2 22.0 mmol/L (22-28) 04/24/18 06:00 ABG O2 Saturation 96.7 % (95-98) 04/24/18 06:00 ABG Base Excess -4.0 mmol/L (-2.0-3.0) L 04/24/18 06:00 Last Test Yes 04/24/18 06:00 ABG Potassium 3.2 mmol/L (3.6-5.2) L 04/24/18 06:00 A-a O2 Difference 22.0 mm/Hg 04/24/18 06:00 Respiratory Index 0.3 04/24/18 06:00 Sodium 141.0 mmol/l (132-148) 04/24/18 06:00 Chloride 112.0 mmol/L (98-107) H 04/24/18 06:00 Glucose 106 mg/dl (65-105) H 04/24/18 06:00 Lactate 2.3 mmol/L (0.7-2.1) H 04/24/18 06:00 FiO2 21.0 % 04/24/18 06:00 Sodium 135 mmol/L (132-148) 04/26/18 06:30 Potassium 3.6 mmol/L (3.6-5.2) 04/26/18 06:30 Chloride 104 mmol/L (98-107) 04/26/18 06:30 Carbon Dioxide 23 mmol/L (22-30) 04/26/18 06:30 Anion Gap 11 (10-20) 04/26/18 06:30 BUN 6 mg/dL (7-17) L 04/26/18 06:30 Creatinine 0.6 mg/dL (0.7-1.2) L 04/26/18 06:30 Est GFR ( Amer) > 60 04/26/18 06:30 Est GFR (Non-Af Amer) > 60 04/26/18 06:30 POC Glucose (mg/dL) 96 mg/dL (65-110) 04/24/18 04:28 Random Glucose 79 mg/dL (65-105) 04/26/18 06:30 Serum Osmolality 354 mosm/kg (272-300) H 04/24/18 05:37 Lactic Acid 1.0 mmol/L (0.7-2.1) 04/25/18 07:23 Calcium 8.2 mg/dl (8.6-10.4) L 04/26/18 06:30 Phosphorus 2.6 mg/dL (2.5-4.5) 04/26/18 06:30 Magnesium 1.8 mg/dL (1.6-2.3) 04/26/18 06:30 Total Bilirubin 0.6 mg/dL (0.2-1.3) 04/26/18 06:30 AST 35 U/L (14-36) 04/26/18 06:30 ALT 46 U/L (9-52) 04/26/18 06:30 Alkaline Phosphatase 66 U/L (38-126) 04/26/18 06:30 Total Protein 6.1 g/dL (6.3-8.3) L 04/26/18 06:30 Albumin 3.4 g/dL (3.5-5.0) L 04/26/18 06:30 Globulin 2.7 gm/dL (2.2-3.9) 04/26/18 06:30 Albumin/Globulin Ratio 1.3 (1.0-2.1) 04/26/18 06:30 Arterial Blood Potassium 3.2 mmol/L (3.6-5.2) L 04/24/18 06:00 Urine Color Straw (YELLOW) 04/24/18 05:15 Urine Clarity Clear (Clear) 04/24/18 05:15 Urine pH 6.0 (5.0-8.0) 04/24/18 05:15 Ur Specific Bishop 1.008 (1.003-1.030) 04/24/18 05:15 Urine Protein Negative mg/dL (NEGATIVE) 04/24/18 05:15 Urine Glucose (UA) Normal mg/dL (Normal) 04/24/18 05:15 Urine Ketones Negative mg/dL (NEGATIVE) 04/24/18 05:15 Urine Blood 3+ (NEGATIVE) H 04/24/18 05:15 Urine Nitrate Negative (NEGATIVE) 04/24/18 05:15 Urine Bilirubin Negative (NEGATIVE) 04/24/18 05:15 Urine Urobilinogen Normal mg/dL (0.2-1.0) 04/24/18 05:15 Ur Leukocyte Esterase Neg Tyree/uL (Negative) 04/24/18 05:15 Urine WBC (Auto) 1 /hpf (0-5) 04/24/18 05:15 Urine RBC (Auto) 6 /hpf (0-3) H 04/24/18 05:15 Ur Squamous Epith Cells 2 /hpf (0-5) 04/24/18 05:15 Urine HCG, Qual Negative (NEGATIVE) 04/24/18 05:15 Salicylates < 1.0 mg/dL 1 04/24/18 04:16 Urine Opiates Screen Negative (NEGATIVE) 04/24/18 05:15 Urine Methadone Screen Negative (NEGATIVE) 04/24/18 05:15 Acetaminophen < 10.0 ug/mL (10.0-30.0) L 04/24/18 04:16 Ur Barbiturates Screen Negative (NEGATIVE) 04/24/18 05:15 Ur Phencyclidine Scrn Negative (NEGATIVE) 04/24/18 05:15 Ur Amphetamines Screen Negative (NEGATIVE) 04/24/18 05:15 U Benzodiazepines Scrn Negative (NEGATIVE) 04/24/18 05:15 U Oth Cocaine Metabols Negative (NEGATIVE) 04/24/18 05:15 U Cannabinoids Screen Negative (NEGATIVE) 04/24/18 05:15 Alcohol, Quantitative 236 mg/dl (0-10) H 04/24/18 04:13 HSV Source Description Serum, vial pour-off 04/24/18 11:55 HIV 1&2 Antibody Screen Negative (NEGATIVE) 04/24/18 07:48 Blood Type A POSITIVE 04/24/18 06:02 Antibody Screen Negative 04/24/18 06:02 - Hospital Course Hospital Course: Patient is a 43 year old F with no significant past medical history brought into ED by brother after found ingesting a packet of rat poison. Brother states that patient was out drinking earlier tonight, returned home where she ingested one full single packet of rat poison pellets. She proceeded to call her mother who lives in the [place]. Mother was concerned and called patient's brother, who awoke to find patient actively vomiting on the floor with the open packet of rat poison. Vomitus appeared to be non-bloody, non-bilious, containing pieces of the pellets. 2 episodes of vomiting in total witnessed. Brother states she has been having issues with her boyfriend for about a year now, has been known to "go out and drink on days she does not work". Patient states she drink 2 shots of Samir See, 1 Modello beer this evening, ingested the rat poison at 2:30 AM. She states she was fully aware of what she was doing and the severity of what she was doing. She endorses suicidal ideation, states "she wanted to rather than continue to suffer like this". She denies any past suicidal ideation/homicidal ideation or attempts to kill herself. When asked if she still wishes to harm herself or others, she states "I am calm now, I am calm" and that "the moment has passed, now I have to move on". Patient endorses nausea but no other acute somatic complaints. No fevers/chills, headaches, dizziness/lightheadedness, chest pain, palpitations, sob, cough, abdominal pain, diarrhea/constipation, hematemesis, hematochezia, melena. Poison control was contacted. Patient was given charcoal in the ED and vomited. Patient's initial CBC and coags on admission were within normal limits. The patient was lethargic with poor appetite. She was started on IVF in addition to clear liquid diet. Her lactate was elevated (2.8) and normalized by the next day (1). BAL 236 on admission. Patient was placed on CIWA protocol with PRN Ativan. Patient did not exhibit withdrawal symptoms. Patient was tearful and admitted to being depressed. She was kept on 1:1 observation for safety. Patient's labs remained stable. Psychiatry was consulted, and patient was agreeable to go to the inpatient psychiatric unit. Upon discharge, patient's vitals and labs were stable. She was tolerating PO diet without nausea and vomiting. She will be transferred to the psychiatric unit for further management. Discharge Exam - Head Exam Head Exam: ATRAUMATIC, NORMAL INSPECTION - Eye Exam Eye Exam: EOMI, Normal appearance, PERRL - ENT Exam ENT Exam: Mucous Membranes Moist Additional comments: dry crusting perioral lesions- improving - Neck Exam Neck exam: Normal Inspection - Respiratory Exam Respiratory Exam: Clear to PA & Lateral, NORMAL BREATHING PATTERN, UNREMARKABLE - Cardiovascular Exam Cardiovascular Exam: REGULAR RHYTHM, +S1 - GI/Abdominal Exam GI & Abdominal Exam: Soft, Unremarkable. absent: Tenderness - Extremities Exam Extremities exam: normal inspection, pedal pulses present - Back Exam Back exam: NORMAL INSPECTION - Neurological Exam Neurological exam: Alert, CN II-XII Intact, Normal Gait, Oriented x3 - Psychiatric Exam Psychiatric exam: Depressed, Flat Affect - Skin Skin Exam: Dry, Intact, Normal Color, Warm Discharge Plan - Follow Up Plan Condition: IMPROVED Disposition: DISCHARGE TO PSYCH HOSPITAL Patient education suggested?: Yes Instructions: Alcohol Abuse and Alcoholism (DC), Suicide Prevention, Depression (DC) Additional Instructions: Please establish care at the [facility]. This will serve as your primary care, and they can coordinate your care with specialists. You have an appointment on May 06 at 1 PM. Please call [phone] if you need any assistance. Please follow-up with psychiatry as an outpatient. It is very important that you continue to take care of your mental health. If you are feeling suicidal or like you want to harm yourself, please come to the nearest emergency department. You may also reach out to the national Suicide Hotline . Por favor establezca cuidado en la [facility] en el [facility]. [place] servir dio [place] atencin primaria y pueden coordinar [place] atencin con especialistas. Tienes stephanie georgie el a la 1 PM. Por favor llame al [phone] si necesita ayuda. Por favor david un seguimiento con la psiquiatra dio paciente ambulatorio. Es muy importante que contine cuidando [place] cristoabl mental. Si se siente suicida o quiere hacerse michaelle, acuda al servicio de urgencias ms cerckvng. [place] puede comunicarse con la lnea directa nacional de suicidio . Referrals: [facility] [Outside] Luisa Euceda MD [Staff Provider] - <Rickie Chamorro - Last Filed: 04/27/18 19:59> Provider - Provider Date of Admission: 04/24/18 04:44 Attending physician: Luisa Euceda Consults: 04/24/18 04:23 Critical Care Consult Stat Comment: Consulting Provider: Solis Miller Consulting Physician: Solis Miller Reason for Consult: rat poison ingestion 04/24/18 04:55 Psychiatry Consult Stat Comment: Consulting Provider: Luisa Euceda Consulting Physician: Luisa Euceda Reason for Consult: suicide attempt, rat poison ingestion 04/24/18 06:48 Director Of Pupil Personnel Program [Case Management Referral] Routine Comment: Physician Instructions: Reason For Exam: Reason for Referral: Director Of Pupil Personnel Program [place] 04/25/18 09:53 Pastoral Care Referral Routine Comment: Physician Instructions: Reason For Exam: depression, s/p suicide attempt Hospital Course - Lab Results Lab Results: Most Recent Lab Values WBC 6.6 K/uL (4.8-10.8) 04/26/18 06:30 RBC 4.19 Mil/uL (3.80-5.20) 04/26/18 06:30 Hgb 14.3 g/dL (11.0-16.0) 04/26/18 06:30 Hct 40.4 % (34.0-47.0) 04/26/18 06:30 MCV 96.4 fL (81.0-99.0) 04/26/18 06:30 MCH 34.3 pg (27.0-31.0) H 04/26/18 06:30 MCHC 35.5 g/dL (33.0-37.0) 04/26/18 06:30 RDW 12.4 % (11.5-14.5) 04/26/18 06:30 Plt Count 211 K/uL (130-400) 04/26/18 06:30 MPV 8.4 fL (7.2-11.7) 04/26/18 06:30 Neut % (Auto) 61.3 % (50.0-75.0) 04/26/18 06:30 Lymph % (Auto) 28.1 % (20.0-40.0) 04/26/18 06:30 [place] % (Auto) 8.2 % (0.0-10.0) 04/26/18 06:30 Eos % (Auto) 1.6 % (0.0-4.0) 04/26/18 06:30 Baso % (Auto) 0.8 % (0.0-2.0) 04/26/18 06:30 Neut # (Auto) 4.0 K/uL (1.8-7.0) 04/26/18 06:30 Lymph # (Auto) 1.9 K/uL (1.0-4.3) 04/26/18 06:30 [place] # (Auto) 0.5 K/uL (0.0-0.8) 04/26/18 06:30 Eos # (Auto) 0.1 K/uL (0.0-0.7) 04/26/18 06:30 Baso # (Auto) 0.1 K/uL (0.0-0.2) 04/26/18 06:30 PT 12.6 SECONDS (9.7-12.2) H 04/26/18 06:30 INR 1.2 04/26/18 06:30 APTT 25 SECONDS (21-34) 04/26/18 06:30 Puncture Site Rra 04/24/18 06:00 pCO2 37 mm/Hg (35-45) 04/24/18 06:00 pO2 81 mm/Hg (80-100) 04/24/18 06:00 HCO3 21.8 mmol/L (21-28) 04/24/18 06:00 ABG pH 7.36 (7.35-7.45) 04/24/18 06:00 ABG Total CO2 22.0 mmol/L (22-28) 04/24/18 06:00 ABG O2 Saturation 96.7 % (95-98) 04/24/18 06:00 ABG Base Excess -4.0 mmol/L (-2.0-3.0) L 04/24/18 06:00 Last Test Yes 04/24/18 06:00 ABG Potassium 3.2 mmol/L (3.6-5.2) L 04/24/18 06:00 A-a O2 Difference 22.0 mm/Hg 04/24/18 06:00 Respiratory Index 0.3 04/24/18 06:00 Sodium 141.0 mmol/l (132-148) 04/24/18 06:00 Chloride 112.0 mmol/L (98-107) H 04/24/18 06:00 Glucose 106 mg/dl (65-105) H 04/24/18 06:00 Lactate 2.3 mmol/L (0.7-2.1) H 04/24/18 06:00 FiO2 21.0 % 04/24/18 06:00 Sodium 135 mmol/L (132-148) 04/26/18 06:30 Potassium 3.6 mmol/L (3.6-5.2) 04/26/18 06:30 Chloride 104 mmol/L (98-107) 04/26/18 06:30 Carbon Dioxide 23 mmol/L (22-30) 04/26/18 06:30 Anion Gap 11 (10-20) 04/26/18 06:30 BUN 6 mg/dL (7-17) L 04/26/18 06:30 Creatinine 0.6 mg/dL (0.7-1.2) L 04/26/18 06:30 Est GFR ( Amer) > 60 04/26/18 06:30 Est GFR (Non-Af Amer) > 60 04/26/18 06:30 POC Glucose (mg/dL) 96 mg/dL (65-110) 04/24/18 04:28 Random Glucose 79 mg/dL (65-105) 04/26/18 06:30 Serum Osmolality 354 mosm/kg (272-300) H 04/24/18 05:37 Lactic Acid 1.0 mmol/L (0.7-2.1) 04/25/18 07:23 Calcium 8.2 mg/dl (8.6-10.4) L 04/26/18 06:30 Phosphorus 2.6 mg/dL (2.5-4.5) 04/26/18 06:30 Magnesium 1.8 mg/dL (1.6-2.3) 04/26/18 06:30 Total Bilirubin 0.6 mg/dL (0.2-1.3) 04/26/18 06:30 AST 35 U/L (14-36) 04/26/18 06:30 ALT 46 U/L (9-52) 04/26/18 06:30 Alkaline Phosphatase 66 U/L (38-126) 04/26/18 06:30 Total Protein 6.1 g/dL (6.3-8.3) L 04/26/18 06:30 Albumin 3.4 g/dL (3.5-5.0) L 04/26/18 06:30 Globulin 2.7 gm/dL (2.2-3.9) 04/26/18 06:30 Albumin/Globulin Ratio 1.3 (1.0-2.1) 04/26/18 06:30 Arterial Blood Potassium 3.2 mmol/L (3.6-5.2) L 04/24/18 06:00 Urine Color Straw (YELLOW) 04/24/18 05:15 Urine Clarity Clear (Clear) 04/24/18 05:15 Urine pH 6.0 (5.0-8.0) 04/24/18 05:15 Ur Specific Bishop 1.008 (1.003-1.030) 04/24/18 05:15 Urine Protein Negative mg/dL (NEGATIVE) 04/24/18 05:15 Urine Glucose (UA) Normal mg/dL (Normal) 04/24/18 05:15 Urine Ketones Negative mg/dL (NEGATIVE) 04/24/18 05:15 Urine Blood 3+ (NEGATIVE) H 04/24/18 05:15 Urine Nitrate Negative (NEGATIVE) 04/24/18 05:15 Urine Bilirubin Negative (NEGATIVE) 04/24/18 05:15 Urine Urobilinogen Normal mg/dL (0.2-1.0) 04/24/18 05:15 Ur Leukocyte Esterase Neg Tyree/uL (Negative) 04/24/18 05:15 Urine WBC (Auto) 1 /hpf (0-5) 04/24/18 05:15 Urine RBC (Auto) 6 /hpf (0-3) H 04/24/18 05:15 Ur Squamous Epith Cells 2 /hpf (0-5) 04/24/18 05:15 Urine HCG, Qual Negative (NEGATIVE) 04/24/18 05:15 Salicylates < 1.0 mg/dL 1 04/24/18 04:16 Urine Opiates Screen Negative (NEGATIVE) 04/24/18 05:15 Urine Methadone Screen Negative (NEGATIVE) 04/24/18 05:15 Acetaminophen < 10.0 ug/mL (10.0-30.0) L 04/24/18 04:16 Ur Barbiturates Screen Negative (NEGATIVE) 04/24/18 05:15 Ur Phencyclidine Scrn Negative (NEGATIVE) 04/24/18 05:15 Ur Amphetamines Screen Negative (NEGATIVE) 04/24/18 05:15 U Benzodiazepines Scrn Negative (NEGATIVE) 04/24/18 05:15 U Oth Cocaine Metabols Negative (NEGATIVE) 04/24/18 05:15 U Cannabinoids Screen Negative (NEGATIVE) 04/24/18 05:15 Alcohol, Quantitative 236 mg/dl (0-10) H 04/24/18 04:13 C.trachomatis RNA (TMA) Not detected (Not Detected) 04/24/18 11:55 HSV Source Description Serum 04/24/18 11:55 HSV I DNA PCR Not detected (Not Detected) 04/24/18 11:55 HSV II DNA PCR Not detected (Not Detected) 04/24/18 11:55 HIV 1&2 Antibody Screen Negative (NEGATIVE) 04/24/18 07:48 N.gonorrhoeae RNA (TMA) Not detected (Not Detected) 04/24/18 11:55 Blood Type A POSITIVE 04/24/18 06:02 Antibody Screen Negative 04/24/18 06:02 Attending/Attestation - Attestation I have personally seen and examined this patient.: Yes I have fully participated in the care of the patient.: Yes I have reviewed all pertinent clinical information, including history, physical exam and plan: Yes Notes (Text): PATIENT WAS SEEN AND EXAMINED,NORMAL INR,MEDICALLY STABLE TO DISCHARGE TO PSYCHIATRY UNIT RECOMMENDED BY PSYCHIATRIST
[2018-04-26 11:48] LABS: SPECIMEN SOURCE Serum
--- NOTE | 2018-04-26 12:27 | PCM.BM ---
<Ely Daon - Last Filed: 04/26/18 12:24> Treatment Plan Problems - Problems identified on initial assessmt Suicidal Ideation Date Initiated: 04/26/18 Time Initiated: 12:25 Assessment reference: NA Status: Monitor Anxiety Date Initiated: 04/26/18 Time Initiated: 12:25 Assessment reference: NA Status: Active Treatment assets and liabiliti Patient Assests: adapts well, cooperative, self-reliant, ADL independent, physically healthy, good support system, negotiates basic needs, financial stabiity, cognitively intact Patient Liabilities: substance abuse - Milieu Protocol Maintain good personal hygiene: daily Encourage regular showers, daily Remind patient to perform daily oral care, daily Assist patient to perform ADL's Conduct patient checks and document Observation sheet: Q15 minutes Maintain personal safety: every shift Educate patient to report safety concerns to staff, every shift Monitor environment for contraband/sharps Medication safety: Monitor for expected outcome, potential side effects: every shift, Assess barriers to learning: every shift, Assess readiness for medication education: every shift Milieu Narrative: Major depressive disorder recurrent severe without psychotic features CBT Psychoeducation Supportive therapy and group therapy Zoloft 50 mg p.o. daily Hydroxyzine 25 mg p.o. every 6 hours as needed Patient to be transferred to psych, after medical clearance. Discharge/Continuing Care - Treatment Team Participation Patient/Family/SO Statement: Major depressive disorder recurrent severe without psychotic features CBT Psychoeducation Supportive therapy and group therapy Zoloft 50 mg p.o. daily Hydroxyzine 25 mg p.o. every 6 hours as needed Patient to be transferred to psych, after medical clearance. <Gem Felix - Last Filed: 04/29/18 13:30> Family Contact Family involvement: Family/SO is involved Family contact: Patient agrees to contact Family contact name: Nelson Landa-brother Family contacted how many times per week?: 1 - Goals for Treatment Patient goals for treatment: "I want to go home." Discharge/Continuing Care - Education Needs Education Needs: Patient Medication, Patient Coping Skills - Discharge Discharge Criteria: Tolerates medication w/o severe side effects, Free of Suicidal thoughts, Reduction of target symptoms Discharge to:: Home, With Family - Treatment Team Participation Discussed with Family/SO: No Was Patient/Family/SO present at Treatment Team Meeting: Yes
--- NOTE | 2018-04-26 15:55 | CARD ---
APPROVED REPORT Date of service: 04/24/2018 EKG Measurement Heart [id number] <Conclusion> Poor data quality, interpretation may be adversely affected Normal sinus rhythm Normal ECG
--- NOTE | 2018-04-26 17:29 | PCM.PYCHPN ---
Psychiatric Progress Note - Psychiatric Progress Note Patient seen today, length of contact: 15 min Patient Chief Complaint: I am feeling little better.' Problems Identified/Issues Discussed: Patient was seen and evaluated, chart reviewed and discussed with the staff. As per staff patient remained depressed, withdrawn and confined to her room. Patient reports depressed mood, however she remained guarded about other depressive symptoms. Remained isolative and withdrawn. She reports some improvement in his sleep and appetite. She is taking medication denies any side effects. Symptoms are improving but she needs to stay longer for further stabilization. Supportive therapy was given Medication Change: Yes Medical Record Reviewed: Yes Mental Status Examination - Cognitive Function Orientation: Person, Place, Situation, Time Memory: Intact Attention: WNL Concentration: Poor Association: WNL Fund of Knowledge: Poor - Mood Mood: Depressed, Anxious - Affect Affect: Constricted, Depressed - Speech Speech: Soft - Formal Thought Process Formal Thought Process: No Impairment - Suicidal Ideation Suicidal Ideation: No - Homicidal Ideation Homicidal Ideation: No Goal/Treatment Plan - Goal/Treatment Plan Need for Continued Stay: Severe depression anxiety, Severe functional impairment Progress Toward Problem(s) and Goals/Treatment Plan: Major depressive disorder recurrent severe without psychotic features CBT Psychoeducation Supportive therapy and group therapy Zoloft 50 mg p.o. daily Hydroxyzine 25 mg p.o. every 6 hours as needed Patient to be transferred to psych, after medical clearance.
--- NOTE | 2018-04-27 08:03 | PCM.PYCHPN ---
Psychiatric Progress Note - Psychiatric Progress Note Patient seen today, length of contact: 15 min Patient Chief Complaint: I am feeling much better Problems Identified/Issues Discussed: Patient was seen and evaluated, chart reviewed and discussed with the staff. As per staff patient remained depressed, withdrawn and confined to her room. Patient reports depressed mood, however she remained guarded about other depressive symptoms. Remained isolative and withdrawn. She reports some improvement in his sleep and appetite. She is taking medication denies any side effects. Symptoms are improving but she needs to stay longer for further stabilization. Supportive therapy was given Medication Change: Yes Medical Record Reviewed: Yes Mental Status Examination - Cognitive Function Orientation: Person, Place, Situation, Time Memory: Intact Attention: WNL Concentration: Poor Association: WNL Fund of Knowledge: Poor - Mood Mood: Depressed, Anxious - Affect Affect: Constricted, Depressed - Speech Speech: Soft - Formal Thought Process Formal Thought Process: No Impairment - Suicidal Ideation Suicidal Ideation: No - Homicidal Ideation Homicidal Ideation: No Goal/Treatment Plan - Goal/Treatment Plan Need for Continued Stay: Severe depression anxiety, Severe functional impairment Progress Toward Problem(s) and Goals/Treatment Plan: Major depressive disorder recurrent severe without psychotic features CBT Psychoeducation Supportive therapy and group therapy Zoloft 50 mg p.o. daily Hydroxyzine 25 mg p.o. every 6 hours as needed Patient to be transferred to psych, after medical clearance.
[2018-04-27] MEDS: Multiple Vitamins Tab PO SCH (09:47)
[2018-04-28 06:36] VITALS: O2SAT 97
[2018-04-28] MEDS: Multiple Vitamins Tab PO SCH (09:54)
--- NOTE | 2018-04-29 00:16 | PCM.PYCHPN ---
Psychiatric Progress Note - Psychiatric Progress Note Patient seen today, length of contact: 15 min Patient Chief Complaint: I am feeling much better Problems Identified/Issues Discussed: Patient was seen and evaluated, chart reviewed and discussed with the staff. As per staff patient remained depressed, withdrawn and confined to her room. Patient reports depressed mood, however she remained guarded about other depressive symptoms. Remained isolative and withdrawn. She reports some improvement in his sleep and appetite. She is taking medication denies any side effects. Symptoms are improving but she needs to stay longer for further stabilization. Supportive therapy was given Medication Change: Yes Medical Record Reviewed: Yes Mental Status Examination - Cognitive Function Orientation: Person, Place, Situation, Time Memory: Intact Attention: WNL Concentration: Poor Association: WNL Fund of Knowledge: Poor - Mood Mood: Depressed, Anxious - Affect Affect: Constricted, Depressed - Speech Speech: Soft - Formal Thought Process Formal Thought Process: No Impairment - Suicidal Ideation Suicidal Ideation: No - Homicidal Ideation Homicidal Ideation: No Goal/Treatment Plan - Goal/Treatment Plan Need for Continued Stay: Severe depression anxiety, Severe functional impairment Progress Toward Problem(s) and Goals/Treatment Plan: Major depressive disorder recurrent severe without psychotic features CBT Psychoeducation Supportive therapy and group therapy Wellbutrin 150 mg p.o. daily Remeron 15 mg p.o. nightly Trazodone 50 mg p.o. nightly Neurontin 100 mg p.o. 3 times daily Hydroxyzine 25 mg p.o. every 6 hours as needed
[2018-04-29] MEDS: Multiple Vitamins Tab PO SCH (09:48)
[2018-04-29] MEDS ORDERED: Pneumococcal 23-Valent Vaccine IM ONE (10:00)
[2018-04-29] MEDS ORDERED: Influenza Vaccine 60 mcg/0.5 mL SYR (4YR UP) IM ONE (10:00)
--- NOTE | 2018-04-29 14:36 | PCM.PYCHPN ---
Psychiatric Progress Note - Psychiatric Progress Note Patient seen today, length of contact: 18 min Patient Chief Complaint: "Not well" Problems Identified/Issues Discussed: The pt is seen, chart reviewed, case discussed with staff. The pt is compliant with medications and reports no side-effects. Symptoms are improving but needs more time to stabilize. Pt attends groups and activities. Support given, psycho-education provided. After care discussed. Medication Change: No Medical Record Reviewed: Yes Mental Status Examination - Cognitive Function Orientation: Person, Place, Situation, Time Memory: Intact Attention: WNL Concentration: Poor Association: WNL Fund of Knowledge: Poor - Mood Mood: Depressed, Anxious - Affect Affect: Constricted, Depressed - Speech Speech: Soft - Formal Thought Process Formal Thought Process: No Impairment - Suicidal Ideation Suicidal Ideation: No - Homicidal Ideation Homicidal Ideation: No Goal/Treatment Plan - Goal/Treatment Plan Need for Continued Stay: Severe depression anxiety, Discharge may exacerbated symptoms, Severe functional impairment Progress Toward Problem(s) and Goals/Treatment Plan: Continue medications Support and psychoeducation daily Attend groups and activities daily After care planning by CAMERON
[2018-04-30 06:42] VITALS: BP 127/87; PULSE 74; RESP 20; TEMP 98.4
[2018-04-30] MEDS: Multiple Vitamins Tab PO SCH (09:52)
[2018-04-30] MEDS ORDERED: buPROPion 150 mg/24 Hours XL Tab PO SCH (10:00)
--- NOTE | 2018-04-30 10:57 | PCM.PYCHDC ---
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 Pt's brother states that the pt was out drinking earlier last night, returned home where she ingested one full single packet of rat poison pellets. Pt was consulted by psych today. Pt was examined at bedside. Pt is in no acute distress, but appears lethargic and tired. When asked about why she ingested the rat poison, pt states "I wasn't feeling good". Pt states she has had a history of depression with suicidal ideations. Pt reports a previous history of inpatient psychiatric hospitalization 3 years ago for depression. Pt 's last time seeing a psychiatrist was over a year ago but does not remember who it was. Pt states she drinks alcohol, about 2 shots and 1, 12oz beer a day. Pt reports hearing multiple female voices calling out her name, but denies that the voices are telling her to hurt herself or others. Pt reports depressed mood, headache, nausea, and auditory hallucination. Pt denies visual hallucinations, suicidal or homicidal ideations, and paranoia. Consultations:: List each consultation separately and include: 1. Reason for request. 2. Findings. 3. Follow-up Summary of Hospital Course include:: 1. Description of specific treatment plan utilized for patients during their course of treatmen. 2. Summarize the time- course for resolution of acute symptoms and/or regressed behaviors. 3. Describe issues identified and worked on during hospitalization. 4. Describe medication utilized. 5. Describe medical problems identified and treated. 6. 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 Pt's brother states that the pt was out drinking earlier last night, returned home where she ingested one full single packet of rat poison pellets. Pt was consulted by psych today. Pt was examined at bedside. Pt is in no acute distress, but appears lethargic and tired. When asked about why she ingested the rat poison, pt states "I wasn't feeling good". Pt states she has had a history of depression with suicidal ideations. Pt reports a previous history of inpatient psychiatric hospitalization 3 years ago for depression. Pt 's last time seeing a psychiatrist was over a year ago but does not remember who it was. Pt states she drinks alcohol, about 2 shots and 1, 12oz beer a day. Pt reports hearing multiple female voices calling out her name, but denies that the voices are telling her to hurt herself or others. Pt reports depressed mood, headache, nausea, and auditory hallucination. Pt denies visual hallucinations, suicidal or homicidal ideations, and paranoia. Past Psych Hx: Depression PMH: denies Meds: denies Allergies: denies - Final Diagnosis (DSM 5) Condition upon Discharge: IMPROVED DSM 5: Major depressive disorder recurrent severe without psychotic features Disposition: HOME/ ROUTINE Follow-up Treatment Plan: Major depressive disorder recurrent severe without psychotic features CBT Psychoeducation Supportive therapy and group therapy Wellbutrin 150 mg p.o. daily Remeron 15 mg p.o. nightly Trazodone 50 mg p.o. nightly Neurontin 100 mg p.o. 3 times daily Hydroxyzine 25 mg p.o. every 6 hours as needed Prescriptions/Medication Reconciliation: buPROPion [Wellbutrin] 150 mg PO DAILY #30 tab Mirtazapine [Remeron] 15 mg PO HS #30 tab traZODone [Desyrel] 50 mg PO HS PRN #30 tab PRN Reason: Insomnia - Smoking Cessation Smoking Cessation Medication prescribed: No - Antipsychotic Medications Pt discharged on 2 or more routine antipsychotic medications: No
== END 2018-04-30 11:10 | disposition home or self-care (01) | DRG 816 ==
LOC: C.ER 03:45 → C.6T 04:44 → C.5E 04-26 11:41
PROVIDERS: ADMIT Psychiatry & Neurology Psychiatry; ATTEND Psychiatry & Neurology Psychiatry
PROC: HZ2ZZZZ Detoxification Services for Substance Abuse Treatment (ICD-10-PCS; principal; 2018-04-24)
PROC: HZ52ZZZ Individual Psychotherapy for Substance Abuse Treatment, Cognitive-Behavioral (ICD-10-PCS; 2018-04-24)
PROC: HZ59ZZZ Individual Psychotherapy for Substance Abuse Treatment, Supportive (ICD-10-PCS; 2018-04-24)
PROC: HZ56ZZZ Individual Psychotherapy for Substance Abuse Treatment, Psychoeducation (ICD-10-PCS; 2018-04-24)
PROC: HZ42ZZZ Group Counseling for Substance Abuse Treatment, Cognitive-Behavioral (ICD-10-PCS; 2018-04-24)
PROC: HZ46ZZZ Group Counseling for Substance Abuse Treatment, Psychoeducation (ICD-10-PCS; 2018-04-24)
PROC: GZHZZZZ Group Psychotherapy (ICD-10-PCS; 2018-04-24)
PROC: GZ58ZZZ Individual Psychotherapy, Cognitive-Behavioral (ICD-10-PCS; 2018-04-24)
PROC: GZ56ZZZ Individual Psychotherapy, Supportive (ICD-10-PCS; 2018-04-24)
DX: T60.4X2A Toxic effect of rodenticides, intentional self-harm, initial encounter (principal); R40.20 Unspecified coma; R11.10 Vomiting, unspecified; F10.129 Alcohol abuse with intoxication, unspecified; Y90.7 Blood alcohol level of 200-239 mg/100 ml; F33.2 Major depressive disorder, recurrent severe without psychotic features; F17.210 Nicotine dependence, cigarettes, uncomplicated; K13.70 Unspecified lesions of oral mucosa; F41.9 Anxiety disorder, unspecified